=== PATIENT | female | born 1950 | race Caucasian/White ===

== ENCOUNTER 2025-04-01 07:40 | Emergency (ER) | payer MEDICARE ==
[~2025-04-01] VITALS: Ht 149.9 cm; Wt 44.9 kg
[2025-04-01 07:55] VITALS: BP 156/77
[2025-04-01] MEDS ORDERED: TDAP DIPH,PERTUSS,TET VAC/PF 0.5 ML DISP.SYRIN IM ONE (11:28)
[2025-04-01] MEDS: TDAP DIPH,PERTUSS,TET VAC/PF 0.5 ML DISP.SYRIN IM ONE (11:34)
[2025-04-01 11:46] VITALS: BP 130/74; TEMP 97.6; O2SAT 96
== END 2025-04-01 11:48 | disposition home or self-care (01) ==
LOC: ER 07:45
DX: S52.134A Nondisplaced fracture of neck of right radius, initial encounter for closed fracture (principal); S62.101A Fracture of unspecified carpal bone, right wrist, initial encounter for closed fracture; S60.229A Contusion of unspecified hand, initial encounter; I10 Essential (primary) hypertension; E78.5 Hyperlipidemia, unspecified; J45.909 Unspecified asthma, uncomplicated; Z88.2 Allergy status to sulfonamides; W01.0XXA Fall on same level from slipping, tripping and stumbling without subsequent striking against object, initial encounter; Y92.480 Sidewalk as the place of occurrence of the external cause; Y93.01 Activity, walking, marching and hiking; Y99.9 Unspecified external cause status
CPT/HCPCS: 73120; 90715; A4606; A4663